=== PATIENT | female | born 1980 | race Caucasian/White ===

== ENCOUNTER 2018-08-17 13:27 | Emergency (ER) | payer BC, OTHER ==
[2018-08-17] MEDS: DIPHENHYDRAMINE 50 MG INJ IM (14:10)
[2018-08-17] MEDS: PROCHLORPERAZINE 10 MG TAB PO (14:10)
[2018-08-17] MEDS: KETOROLAC 30 MG INJ IM (14:10)
[2018-08-17] MEDS: ONDANSETRON (ODT) 4 MG TAB ODT (15:12)
== END 2018-08-17 15:15 | disposition home or self-care (01) ==
LOC: FTE 13:27
DX: G43.909 Migraine, unspecified, not intractable, without status migrainosus (principal); R40.2412 Glasgow coma scale score 13-15, at arrival to emergency department; F17.210 Nicotine dependence, cigarettes, uncomplicated
CPT/HCPCS: 81025; 96372; 99284-25